=== PATIENT | female | born 1970 | race Caucasian/White ===

== ENCOUNTER → 2020-06-23 | Outpatient (CLI) | payer OTHER | LOC: KOH-I 08:23 | DX: R06.02 Shortness of breath (principal); R05 Cough | CPT/HCPCS: 71046 ==

== ENCOUNTER → 2021-11-04 | Outpatient (CLI) | payer OTHER ==
[2021-11-06 08:13] LABS: RUBELLA ANTIBODIES, IGG 5.55 index (Immune >0.99)
== END ==
LOC: LAB 15:29
PROVIDERS: Nurse Practitioner Family
DX: Z02.1 Encounter for pre-employment examination (principal)
CPT/HCPCS: 36415; 86762; 86787